=== PATIENT | female | born 1950 | race Caucasian/White ===

== ENCOUNTER 2023-11-05 23:03 | Emergency (ER) | payer MEDICARE, SELFPAY ==
--- NOTE | 2023-11-05 23:02 | ECG_ITS ---
APPROVED REPORT Exam: Resting ECG HR:110 bpm ECG Measurements Heart Rate 110 AXES IL 195 P 84 QRSd 76 QRS 81 QT 372 T 73 QTc 437 Conclusion SINUS TACHYCARDIA SEPTAL MYOCARDIAL INFARCTION , PROBABLY OLD [40+ ms Q WAVE IN V1/V2] ABNORMAL ECG UNCONFIRMED REPORT Electronically signed by : JONE SCHMITZ, 11/06/2023 06:55:50
[2023-11-05 23:03] VITALS: BP 152/88; PULSE 117; RESP 22; TEMP 36.9; O2SAT 97; BMI 20.1
--- NOTE | 2023-11-05 23:05 | PC.NURSE ---
Notified respiratory of need for VBG and DuoNeb orders.
--- NOTE | 2023-11-05 23:09 | XR_ITS ---
PROCEDURE INFORMATION: Exam: XR Chest Exam date and time: 11/05/2023 11:16 PM Age: 73 years old Clinical indication: Shortness of breath; Additional info: Copd, SOA TECHNIQUE: Imaging protocol: Radiologic exam of the chest. Views: 1 view. COMPARISON: No relevant prior studies available. FINDINGS: Lungs: Hyperinflated lungs consistent with emphysema. Scattered bilateral calcified granulomas. No consolidation. Pleural spaces: Normal. No pleural effusion. No pneumothorax. Heart/Mediastinum: Normal. No cardiomegaly. Vasculature: Mildly atherosclerotic thoracic aorta. Bones/joints: Unremarkable. IMPRESSION: 1. Emphysema. 2. No acute findings.
--- NOTE | 2023-11-05 23:11 | [facility].EDGENADL ---
Discharge Plan Disposition Patient Disposition: Home, Self-Care Prescriptions Prescriptions: New amoxicillin-pot clavulanate 875-125 mg tablet 1 tab PO BID 7 Days Qty: 14 0RF prednisone 50 mg tablet 50 mg PO DAILY 4 Days Qty: 4 0RF Referrals Follow up/Referrals: Provider,Referral, [Primary Care Provider] - See instructions Activity Restrictions/Add. Instructions Additional Instructions/Restrictions: Please take antibiotics as prescribed. Please take steroids as previously prescribed. Please follow-up with your primary care provider. Please return to the emergency department if you develop any new or worsening symptoms or become concerned for your health. Clinical Impressions Clinical Impression: Acute exacerbation of chronic obstructive airways disease Print Language Print Language: Serbian Discharge ED Provider: Rivera Lucero Adult HPI General Chief complaint: Shortness of Breath/Dyspnea Stated complaint: copd exacerbation Time Seen by Provider: 11/05/23 23:05 Mode of Arrival: EMS Source of Information: Patient Limitations: No Limitations Description of Symptoms (Recalled from ER Triage Doc. by RN): pt reports increasing SOA all day, reports having dry occasional cough History of Present Illness HPI narrative: 33-year-old female with history of hypertension and COPD with chronic hypoxic respiratory failure on 3 L nasal cannula baseline, still smokes presents for worsening shortness of breath today. She reports that started this morning. She called her PCP who called in some prednisone. She reports that she took it but her symptoms continue to worsen. She denies any significant increase in cough. She denies any chest pain. Does report that she has had some blood on the top paper when she wipes but she has a history of hemorrhoids in the past. Patient was given 1 DuoNeb and 1.5 Solu-Medrol by EMS and route. Related Data Previous Rx's ?Medication ?Instructions ?Recorded amoxicillin 875 mg-potassium 1 tab PO BID 7 days #14 tabs 11/06/23 clavulanate 125 mg tablet prednisone 50 mg tablet 50 mg PO DAILY 4 days #4 tabs 11/06/23 Allergies Allergy/AdvReac Type Severity Reaction Status Date / Time INGREDIENT: NO KNOWN - NO Allergy Unknown Uncoded 03/12/17 15:18 KNOWN DRUG ALLERGY [facility] Disclaimer: The information contained in this section may have been updated after the patient was seen, as this information can be updated by other users. Social History Smoking Status: Current every day smoker alcohol intake: never current occupational status: retired Travel in the last 8 weeks: None ROS Obtained: Yes All systems reviewed & no additional complaints except as documented Physical Exam General General appearance: alert and in distress (Tripoding) Head Head exam: atraumatic and normocephalic Eye Eye exam: Present normal appearance, PERRL and EOMI ENT ENT exam: Present normal oropharynx and normal external ear exam Neck Neck exam: Present normal inspection and full ROM Chest Chest inspection: Present normal inspection and symmetric chest wall rise; Absent tenderness Respiratory Respiratory exam: Present respiratory distress and other (No significant air movement bilaterally, patient tachypneic, pursed lip breathing, tripoding) Cardiovascular Cardiovascular exam: Present normal rhythm and tachycardia Abdominal Exam Abdominal exam: Present soft; Absent distention, tenderness or guarding Bimanual exam: Present other (Patient declined rectal exam) Extremities Exam Extremities exam: Present normal inspection; Absent edema or joint swelling Back Exam Back exam: Present normal inspection; Absent tenderness Neurological Exam Neurological exam: Present alert and oriented X3; Absent motor sensory deficit Psychiatric Psychiatric exam: Present normal affect and normal mood Skin Skin exam: Present warm, dry and normal color Lymphatic Lymphatic Findings: no adenopathy Medical Decision Making Medical Records Medical records reviewed: Yes I reviewed the patient's medical records. Braxton Inquiry Pt receiving controlled substance: No Braxton was queried for this patient: No Vital Signs: 11/05/23 23:03 Temperature 98.4 F Temperature Source Oral Pulse Rate [Right] 117 H Respiratory Rate 22 Blood Pressure [Right Arm] 152/88 H Blood Pressure Mean [Right Arm] 109 Blood Pressure Source [Right Arm] Automatic Cuff Blood Pressure Position [Right Arm] Sitting 02 Sat by Pulse Oximetry 97 Oxygen Delivery Method Nasal Cannula Oxygen Flow Rate (LPM) 3 Lab Data Lab results reviewed: Yes I reviewed the patient's lab results. Lab Results 11/05/23 23:00: WBC 16.4 H, RBC 4.97, Hgb 15.1, Hct 44.5, MCV 89.5, MCH 30.4, MCHC 34.0, RDW 15.2, Plt Count 377, MPV 8.2, Neut % (Auto) 71.1, Lymph % (Auto) 19.5, [place] % (Auto) 6.2, Eos % (Auto) 2.4, Baso % (Auto) 0.8, Neut # (Auto) 11.6 H, Lymph # (Auto) 3.2, [place] # (Auto) 1.0, Eos # (Auto) 0.4, Baso # (Auto) 0.1, Total Counted 100, Neutrophils % (Manual) 71, Lymphocytes % (Manual) 22, Monocytes % (Manual) 5, Eosinophils % (Manual) 2, RBC Morphology Normal, PT 9.7 L, INR 0.85 L, Sodium 138, Potassium 3.6, Chloride 102, Carbon Dioxide 35 H, Anion Gap 4.6 L, BUN 17, Creatinine 0.60, Estimated Creat Clear 44, Estimated GFR 97, Est GFR ( Amer) 118, Glucose 152 H, Calcium 8.9, Total Bilirubin 0.4, AST 30, ALT 23, Alkaline Phosphatase 104, Total Protein 6.9, Albumin 3.8, Globulin 3.1, Albumin/Globulin Ratio 1.2 11/05/23 23:10: VBG pH 7.37, VBG pCO2 56.3 H, VBG pO2 131.0 H, VBG HCO3 31.8 H, VBG Total CO2 33.5 H, VBG O2 Saturation 98.6 H, VBG Base Excess 6.5 H, VBG Lactic Acid 2.1 H 11/05/23 23:00 11/05/23 23:00 Orders (Tests/Meds): ED MEDICATIONS Discontinued Medications Generic Name Dose Route Start Last Admin Trade Name Porfirioq PRN Reason Stop Dose Admin Albuterol/Ipratropium 6 ml 11/05/23 23:09 11/05/23 23:57 Ipratropium/Albuterol 3 Ml Neb IH 11/05/23 23:10 6 ml ONCE ONE Administration Amoxicillin/Clavulanate Potassium 1 each 11/06/23 00:09 11/06/23 00:16 Amoxicillin/Clavulanate Potassium 875/125mg Tablet PO 11/06/23 00:10 1 each ONCE ONE Administration Magnesium Sulfate 2 gm in 50 mls @ 50 mls/hr 11/05/23 23:09 11/05/23 23:15 Magnesium Sulfate 2gm/50ml Premix IV 11/06/23 00:08 50 mls/hr ONCE ONE Administration ORDERS Category Date Time Status CXR --portable [XR chest portable] Stat Exams 11/05/23 23:09 Completed CBC w/Auto Diff [Complete Blood Count Auto Diff] Stat Lab 11/05/23 23:00 Completed CMP [Comprehensive Metabolic Panel] Stat Lab 11/05/23 23:00 Completed INR [Prothrombin Time INR] Stat Lab 11/05/23 23:00 Completed VBG [Venous Blood Gas] Stat RT 11/05/23 23:10 Completed Medical Decision Narrative: 73-year-old female with history of hypertension, COPD on 3 L nasal cannula baseline presents for shortness of breath that developed today.. History was obtained via interactive discussion with patient, EMS. On arrival, patient is afebrile, mildly tachycardic, in respiratory distress with pursed lip breathing, tripoding, poor air movement bilaterally. Satting appropriately on home nasal cannula. Differential includes but is not limited to COPD exacerbation, pneumonia, pneumothorax, URI. Patient was given 1 DuoNeb and 125 Solu-Medrol by EMS en route. She is immediately given 2 [id number] DuoNebs and 2 g of IV magnesium in our ER. For symptomatic management and correction of underlying abnormalities. Workup initiated including EKG chest x-ray CBC CMP ABG. On re-evaluation, patient had remarkable symptomatic improvement after DuoNebs and mag. Breathing comfortably, good air movement bilaterally with only minimal wheezing. Laboratory workup independently interpreted by me and significant for normal pH with mildly increased pCO2, normal hemoglobin, mild leukocytosis, no significant electrolyte derangement. Imaging independently interpreted by me and significant for emphysematous changes without focal opacity or pneumothorax. See radiology read for full review of final results. EKG independently interpreted by me and significant for sinus tachycardia with ventricular rate of 110, no significant ST or T wave changes. Admission for COPD management was considered, but deemed unnecessary due to symptomatic improvement after ER therapy. Given patient history, exam and workup, patient's presentation most likely represents acute COPD exacerbation. We will treat with Augmentin and prescription for prednisone. I recommended that she stay a bit longer for observation after DuoNebs, but patient reports that she needs to leave because of issues with her transportation. She reports she will return if she becomes symptomatic again. Procedures Risk/Benefits of Procedure(s) Were Explained: Yes Critical Care Critical Care Time Critical Care Time: Yes Attestation: On 11/05/23, the high probability of a clinically significant, sudden or life threatening deterioration of the following system(s) respiratory required my full and direct attention, intervention and personal management. The time I documented below is in addition to time spent performing reported procedures but includes the following listed in this critical care notation. Total Time Total Critical Care Time: 40
[2023-11-05] MEDS: MAGNESIUM SULFATE IN WATER 2 GM/50 ML PIGGYBACK IV (23:15)
[2023-11-05 23:17] LABS: Basophils # 0.1 K/mm3 (0-0.2); Basophils % 0.8 % (0.1-2.0); Eosinophils # 0.4 K/mm3 (0.0-0.4); Eosinophils % 2.4 % (0.1-12.0); Hematocrit 44.5 % (37.0-47.0); Hemoglobin 15.1 g/dL (12.2-16.2); Lymphocytes # 3.2 K/mm3 (0.7-4.5); Lymphocytes % 19.5 % (10-50); Mean Corpuscular Hemoglobin 30.4 pg (27.0-31.2); Mean Corpuscular Volume 89.5 fl (81-99); Mean Platelet Volume 8.2 fl (7.4-10.4); Monocytes % 6.2 % (1.7-9.3); Neutrophils # 11.6 K/mm3 (1.8-7.8); Neutrophils % 71.1 % (37.0-80.0); Platelet Count 377 K/mm3 (142-424); Red Blood Count 4.97 M/mm3 (4.20-5.40); Red Cell Distribution Width 15.2 % (11.5-17.5); White Blood Count 16.4 K/mm3 (4.8-10.8)
[2023-11-05 23:18] LABS: VBG Base Excess 6.5 mmol/L (-2.4-2.3); VBG HCO3 31.8 mmol/L (23-30); VBG Oxygen Saturation 98.6 % (50-70); VBG PH 7.37 mmol/L (7.31-7.41); VBG Total CO2 33.5 mmol/L (23-27)
[2023-11-05 23:19] LABS: MANUAL DIFFERENTIAL MANUAL DIFFERENTIAL (MANUAL DIFF)
[2023-11-05 23:20] LABS: Lactate Venous 2.1 mmol/L (0.4-2.0); VBG PCO2 56.3 mmol/L (35-51)
[2023-11-05 23:37] LABS: INR 0.85 (0.9-1.1); Prothrombin Time 9.7 seconds (10.1-12.5)
[2023-11-05 23:44] LABS: Albumin Level 3.8 g/dl (3.5-5.0); Chloride 102 mmol/L (98-107); Potassium 3.6 mmoL/L (3.5-5.1); Sodium 138 mmol/L (136-145)
[2023-11-05 23:45] LABS: Eosinophils % 2 % (0-3); Lymphocytes % 22 % (10-50); Monocytes % 5 % (2-9); Neutrophils % 71 % (42-76); Total Cells Counted 100
[2023-11-05 23:46] LABS: Blood Urea Nitrogen 17 mg/dl (7-17); Creatinine Clearance Estimated 44 mL/min (50-200); Estimated Glomerular Filt Rate 97 ml/min (>60); GFR (African American) 118 ML/MIN (>60)
[2023-11-05 23:47] LABS: Alanine Aminotransferase 23 U/L (12-78); Albumin/Globulin Ratio 1.2 (1.1-1.8); Alkaline Phosphatase 104 U/L (38-126); Anion Gap 4.6 mEq/L (5-15); Aspartate Amino Transferase 30 U/L (14-36); Bilirubin,Total 0.4 mg/dl (0.2-1.3); Calcium 8.9 mg/dl (8.4-10.2); Carbon Dioxide 35 mmol/L (22.0-30.0); Globulin 3.1 g/dL (1.3-3.2); Glucose 152 mg/dl (74-100); RBC Morphology Normal; Total Protein,Serum 6.9 g/dl (6.3-8.2)
[2023-11-05] MEDS: IPRATROPIUM/ALBUTEROL 3 ML NEB 6 ML IH (23:57)
[2023-11-06] MEDS: AMOXICILLIN/CLAVULANATE POTASSIUM 875/125MG TABLET 1 EACH PO (00:16)
--- NOTE | 2023-11-06 00:45 | PC.NURSE ---
Pt up to bedside Commode, increase in SOA with exertion, educated on SOA and need to possile to stay longer in ER, pt insistent on being discharged, risks and benefits explained verbalized understanding
[2023-11-06 00:47] VITALS: BP 152/88; PULSE 98; RESP 20; TEMP 36.8; O2SAT 97
== END 2023-11-06 00:51 | disposition home or self-care (01) ==
PROVIDERS: Emergency Provider Emergency Medicine
DX: J44.1 Chronic obstructive pulmonary disease with (acute) exacerbation (principal); R00.0 Tachycardia, unspecified; K64.8 Other hemorrhoids; F17.210 Nicotine dependence, cigarettes, uncomplicated; I10 Essential (primary) hypertension; Z99.81 Dependence on supplemental oxygen; R06.2 Wheezing
CPT/HCPCS: 71045; 80053; 82803; 85007; 85025; 85027; 85610; 93005; 96365; 99284; J3475; J7620